=== PATIENT | female | born 1950 | race Caucasian/White ===

== ENCOUNTER 2017-11-02 07:43 | Day surgery (SDC) | payer MEDICARE ==
[~2017-11-02 07:43] MED LIST: Buffered Lidocaine 0.9% SYRIN* 5 ML/SYR SYRINGE INTRADERM ONE; Sodium Citrate/Citric Acid* 15 ML UDC PO ONE
[2017-11-02] MEDS ORDERED: Buffered Lidocaine 0.9% SYRIN* 5 ML/SYR SYRINGE ONE (07:51)
[2017-11-02] MEDS ORDERED: Sodium Citrate/Citric Acid* 15 ML UDC ONE (07:51)
[2017-11-02 08:17] LABS: Hematocrit 41 % (35-47); Hemoglobin 13.7 g/dl (12.0-16.0); Mean Corpuscular HGB Conc 33 g/dl (31-36); Mean Corpuscular Hemoglobin 29 pg (27-31); Mean Corpuscular Volume 87 fL (80-97); Mean Platelet Volume 8 um3 (7.4-10.4); Red Blood Count 4.74 10^6/ul (4.0-5.4); Red Cell Distribution Width 14 % (10.5-15); White Blood Count 6.8 10^3/ul (3.5-10.8)
[2017-11-02] MEDS ORDERED: Ferric Subsulfate* 8 ML BTL ONE (08:50)
[2017-11-02] MEDS ORDERED: Acetic Acid 0.25%* 250 ML BTL ONE (08:50)
[2017-11-02] MEDS ORDERED: Lidocaine 1% INJ* 10 MG/ML 30 ML SDV ONE (08:50)
[2017-11-02] MEDS ORDERED: VASOPRESSIN 20 UNITS/ML 1 ML VIAL ONE (08:52)
[2017-11-02] MEDS ORDERED: Iodine Strong (LUGOL'S)* 14 ML BTL ONE (08:53)
[2017-11-02] MEDS ORDERED: Propofol* 10 MG/ML 20 ML BTL IV PUSH ONE (09:11)
[2017-11-02] MEDS ORDERED: Lidocaine 2% PF * 5 ML VIAL ONE (09:11)
[2017-11-02] MEDS ORDERED: fentaNYL* 50 MCG/ML 2 ML VIAL (100 MCG VIAL) ONE (09:12)
[2017-11-02] MEDS ORDERED: oxyCODONE/Acetamin 5/325 MG* TAB PO PRN (09:55)
[2017-11-02] MEDS ORDERED: Ibuprofen TAB* 600 MG PO PRN (09:55)
[2017-11-02] MEDS ORDERED: oxyCODONE/Acetamin 5/325 MG* TAB ONE (10:18)
[2017-11-02 10:56] VITALS: BP 147/83
--- NOTE | 2017-11-02 14:42 | OP ---
DATE OF OPERATION: 11/02/[address] [facility] DATE OF : 46 SURGEON: Woody Eastman MD ANESTHESIOLOGIST: Dr. Roger Coronado. ANESTHESIA: General endotracheal anesthesia. PRE-OP DIAGNOSIS: DARNELL III, severe cervical dysplasia on colposcopy. POST-OP DIAGNOSIS: DARNELL III, severe cervical dysplasia on colposcopy, pathology pending. OPERATIVE PROCEDURE: Colposcopy, Hopkins cone biopsy, size large. ESTIMATED BLOOD LOSS: Minimal, less than 20 cc. SPECIMENS: 1. Cone biopsy with a cut at 12 o'clock. 2. Deeper cut from 3 to 6 o'clock. 3. Endocervical curettage. FLUIDS: Per Anesthesia. DRAINS: None. FINDINGS: Midline cervix. There were acetowhite changes surrounding the entire internal os. There were no abnormal vessels seen. No condylomata seen. COMPLICATIONS: None. COUNTS: Sponge, lap, and needle count were correct x2. CONDITION: Excellent hemostasis was achieved with the application of Monsel's solution. Patient tolerated the procedure well and was brought to recovery room awake and in stable condition. DESCRIPTION OF PROCEDURE: Patient was brought to the operating room. When general anesthesia was found to be adequate, the patient was draped in the dorsal lithotomy position. No Betadine prep was used. Colposcopy was then the performed with the above findings noted. The vinegar was applied with acetowhite changes seen surrounding the entire cervical os. Lugol's solution was applied to delineate the limits of the lesion. A size large Hopkins cone biopsy was chosen to encompass the entire sizeable lesion. The Hopkins cone was performed with a cut at 12 o'clock. The Hopkins cone was removed in one piece and sent to pathology. A deeper cut was made from 3 to 6 o'clock where there was some remaining tissue seen. The third specimen was endocervical curettage. Excellent hemostasis was then achieved with the application of Monsel's solution. All instruments were removed from the vagina. Patient tolerated the procedure well. Sponge, lap, and needle count were correct x2, and the patient was brought to recovery room awake and in stable condition. [id number]/[facility] #: [id number] MTDD
== END 2017-11-02 10:56 | disposition home or self-care (01) ==
LOC: OR 07:43
PROVIDERS: ATTEND Obstetrics & Gynecology
DX: D06.9 Carcinoma in situ of cervix, unspecified (principal); Z87.891 Personal history of nicotine dependence; Z88.0 Allergy status to penicillin; R87.810 Cervical high risk human papillomavirus (HPV) DNA test positive
CPT/HCPCS: 36415; 85025; 86803; 86850; 86900; 86901; 88305; 88307; 88342; A9270-GY; J2704; J3010